=== PATIENT | male | born 1985 | race African-American/Black ===

== ENCOUNTER 2022-11-18 21:08 | Emergency (ER) | payer BC ==
[2022-11-18] MEDS ORDERED: Ketorolac Tromethamine 30 MG/ML VIAL ONE (22:22)
== END 2022-11-18 22:23 | disposition home or self-care (01) ==
LOC: CSHERS 21:08
DX: S46.812A Strain of other muscles, fascia and tendons at shoulder and upper arm level, left arm, initial encounter (principal); R20.2 Paresthesia of skin; F17.290 Nicotine dependence, other tobacco product, uncomplicated; W27.8XXA Contact with other nonpowered hand tool, initial encounter
CPT/HCPCS: 96372; 99283; J1885